=== PATIENT | female | born 1980 | race Caucasian/White ===

== ENCOUNTER 2020-09-09 10:31 | Emergency (ER) | payer OTHER ==
[~2020-09-09] VITALS: Ht 170.2 cm; Wt 169.6 kg
[2020-09-09] MEDS ORDERED: PENICILLIN V P500 MG PO (11:04)
--- OUTSIDE RECORDS SUMMARY | 2020-09-09 11:24 | XMS ---
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 [place] VISIT COUNT (12 MO.) 1 HEMALATHA [place] TOTAL 1 NOTE: Visits indicate total known visits. ED/UCC VISIT TRACKING (12 MO.) 09/09/2020 10:33 HEMALATHA [facility] OR TYPE: Emergency COMPLAINT: - TOOTH PAIN INPATIENT VISIT TRACKING (12 MO.) No inpatient visits to display in this time frame [email or web address]
== END 2020-09-09 11:13 | disposition home or self-care (01) ==
LOC: ED 10:31
DX: K04.7 Periapical abscess without sinus (principal)
CPT/HCPCS: 99282